=== PATIENT | male | born 1945 | race Caucasian/White ===

== ENCOUNTER 2019-11-14 14:41 | Emergency (ER) | payer MEDICAID ==
[~2019-11-14] VITALS: Ht 175.3 cm; Wt 51.0 kg
[2019-11-14] MEDS ORDERED: ONDA4TAB5 PO (14:58)
[2019-11-14] MEDS ORDERED: IBUP-2741 PO (14:58)
[2019-11-14] MEDS ORDERED: LACT10SO30 PO (14:58)
[2019-11-14] MEDS ORDERED: HYDR-3281 PO (14:58)
[2019-11-14] MEDS ORDERED: DOPAMINE 400MG/250ML PREMIX 250 ML IV ONE ×2 (15:19→15:30)
[2019-11-14] MEDS ORDERED: PROPOFOL 10MG/ML 100ML 100 ML IV ONE (15:30)
[2019-11-14] MEDS ORDERED: PIPERACILLIN/TAZ 3.375G PREMIX 50 ML IV ONE (15:30)
[2019-11-14] MEDS ORDERED: VANCOMYCIN 1 G PREMIX 200 ML IV ONE (15:30)
[2019-11-14] MEDS ORDERED: SODIUM CHLORIDE 0.9% 1000ML BAG (SEPSIS BOLUS) IV ONE (15:30)
[2019-11-14] MEDS ORDERED: HYDROCORTISONE SOD SUCCINATE 100 MG/2 ML VIAL IV ONE (15:30)
[2019-11-14] MEDS ORDERED: LORAZEPAM 2MG/ML CPJ IV ONE (15:45)
[2019-11-14 16:08] LABS: BASOPHILS % 0.2 % (0.0-2.0); EOSINOPHILS % 0.2 % (0.0-5.0); HEMATOCRIT. 36.5 % (42.0-52.0); HEMOGLOBIN. 11.3 g/dL (14.0-18.0); LYMPHOCYTES % 25.8 % (20.0-50.0); MEAN CORPUSCULAR HEMOGLOBIN 33.7 pg (28.0-32.0); MEAN CORPUSCULAR VOLUME 108.3 fL (80.0-94.0); MEAN PLATELET VOLUME 12.4 fl (7.4-10.4); MONOCYTES % 2.6 % (2.0-8.0); NEUTROPHILS % 71.2 % (40.0-76.0); RED BLOOD CELL COUNT 3.37 mill/uL (4.7-6.1); RED CELL DISTRIBUTION WIDTH 22.9 % (11.6-14.6)
[2019-11-14] MEDS ORDERED: PANTOPRAZOLE 80 MG in SODIUM CHLORIDE 0.9% 100 ML IV SCH (16:15)
[2019-11-14] MEDS ORDERED: PANTOPRAZOLE SODIUM 40 MG/VIAL IV ONE ×2 (16:15→16:59)
[2019-11-14 16:22] LABS: CHLORIDE 125 mEq/L (98-107); CLARITY URINE TURBID (CLEAR); COLOR URINE ORANGE (YELLOW); KETONES URINE NEGATIVE (NEGATIVE); LEUKOCYTE ESTERASE URINE 2+ (NEGATIVE); NITRITE URINE POSITIVE (NEGATIVE); OCCULT BLOOD URINE 2+ (NEGATIVE); PROTEIN URINE 2+ (NEGATIVE); SPECIFIC GRAVITY URINE 1.026 (1.005-1.030)
[2019-11-14 16:26] LABS: ETHANOL BLOOD < 10 mg/dL
[2019-11-14 16:30] LABS: CREATINE KINASE 99 IU/L (39-308)
[2019-11-14 16:33] LABS: CREATINE KINASE MB FRACTION 3.2 ng/mL (0.5-3.6)
[2019-11-14 16:34] LABS: PROTHROMBIN TIME 72.6 sec (9.6-11.0)
[2019-11-14 16:35] LABS: INR 7.1
[2019-11-14 16:44] LABS: *AMPHETAMINES SCREEN URINE NEGATIVE (NEGATIVE); *BARBITURATES SCREEN URINE NEGATIVE (NEGATIVE); *BENZODIAZEPINES SCREEN URINE NEGATIVE (NEGATIVE); *COCAINE SCREEN URINE NEGATIVE (NEGATIVE); METHADONE URINE SCREEN NEGATIVE (NEGATIVE); OPIATES URINE SCREEN NEGATIVE (NEGATIVE)
[2019-11-14 16:45] LABS: CANNABINOID URINE SCREEN NEGATIVE (NEGATIVE); PHENCYCLIDINE URINE SCREEN NEGATIVE (NEGATIVE)
[2019-11-14] MEDS ORDERED: PHYTONADIONE 10MG/ML AMP IM ONE (16:45)
[2019-11-14 17:20] VITALS: BP 40/13
[2019-11-14 18:06] LABS: PLATELET 14 x1000/uL (130-400)
== END 2019-11-14 20:42 | disposition expired ==
LOC: ER 14:50 → EDBEDREQ 17:01 → EDBEDREQTM 17:01 → EDBEDREQSVC 17:01 → CANBEDREQ 17:21 → ER 20:42
DX: B97.29 Other coronavirus as the cause of diseases classified elsewhere (principal); A41.9 Sepsis, unspecified organism; R09.2 Respiratory arrest; E86.0 Dehydration; K92.2 Gastrointestinal hemorrhage, unspecified; K74.60 Unspecified cirrhosis of liver; R18.8 Other ascites; D69.6 Thrombocytopenia, unspecified; R79.1 Abnormal coagulation profile; Z93.1 Gastrostomy status
CPT/HCPCS: 36415; 71045; 80053; 80305; 80320; 81003; 82140; 82550; 82553; 83605; 83880; 84145; 84443; 84484; 85025; 85610; 86850; 86900; 86901; 87040; 87076; 87086; 87635; 87804; 93005; 94002; 96365; 96368; 96375; 99285; C9113; J1265; J1720; J2060; J2543; J2704; J3370; J3430; J7030; J7050; Z7610; G0480